=== PATIENT | male | born 1955 | race Caucasian/White ===

== ENCOUNTER 2017-08-08 12:42 | Day surgery (SDC) | payer OTHER ==
[2017-08-08] MEDS ORDERED: LR 1,000 ML IV ONE (13:35)
[2017-08-08] MEDS ORDERED: LIDOCAINE 1% 2 ML INJ ID PRN (13:35)
[2017-08-08] MEDS ORDERED: LIDOCAINE 1% 2 ML INJ ONE (13:42)
[2017-08-08 14:09] VITALS: PULSE 66
[2017-08-08] MEDS ORDERED: MIDAZOLAM 2 MG/2 ML VIAL IVP ONE (15:21)
--- NOTE | 2017-08-08 15:24 | PDANEPAE ---
ANE History of Present Illness R ankle arthrocentesis, bone excision ANE Past Medical History - Cardiovascular History Hx Hypertension: No Hx Arrhythmias: No Hx Chest Pain: No Hx Coronary Artery / Peripheral Vascular Disease: No Hx CHF / Valvular Disease: No Hx Palpitations: No Cardiovascular History Comment: NO CP - Pulmonary History Hx COPD: No Hx Asthma/Reactive Airway Disease: No Hx Recent Upper Respiratory Infection: No Hx Oxygen in Use at Home: No Hx Sleep Apnea: No Sleep Apnea Screening Result - Last Documented: Negative - Neurologic History Hx Cerebrovascular Accident: No Hx Seizures: No Hx Dementia: No - Endocrine History Hx Diabetes: No - Renal History Hx Renal Disorders: No - Liver History Hx Hepatic Disorders: No - Neurological & Psychiatric Hx Hx Neurological and Psychiatric Disorders: Yes Neurological / Psychiatric History Comment: ANXIETY - Cancer History Hx Cancer: Yes Cancer History Comment: basal cell skin cancer - Congenital Disorder History Hx Congenital Disorders: No - GI History Hx Gastrointestinal Disorders: No Gastrointestinal History Comment: none - Other Health History Other Health History: NEG - Chronic Pain History Chronic Pain: No - Surgical History Prior Surgeries: DISPLACE ANKLE ANE Review of Systems Review of Systems: - Exercise capacity Exercise capacity: >=4 METS METS (RN): 4 METS ANE Patient History - Allergies Allergies/Adverse Reactions: No Known Allergies Allergy (Verified 08/02/17 12:07) - Home Medications Home medications: home medication list seen and reviewed Home Medications: Gabapentin 08/02/17 [Last Taken 08/08/17 07:30] - NPO status NPO Since - Liquids (Date): 08/08/17 NPO Since - Liquids (Time): 12:30 NPO Since - Solids (Date): 08/08/17 NPO Since - Solids (Time): 07:00 - Anes Hx Anes Hx: no prior problems - Smoking Hx Smoking Status: Never smoked - Family Anes Hx Family Anes Hx: none Family Hx Anesthesia Complications: NEG ANE Labs/Vital Signs - Vital Signs Blood Pressure: 110/67 Heart Rate: 66 Respiratory Rate: 20 O2 Sat (%): 97 Height: 195.58 cm Weight: 120.202 kg ANE Physical Exam - Airway Neck exam: FROM Mallampati Score: Class 2 Mouth exam: normal dental/mouth exam - Pulmonary Pulmonary: no respiratory distress - Cardiovascular Cardiovascular: regular rate and rhythym - ASA Status ASA Status: II ANE Anesthesia Plan Total IV Anesthesia: Yes
[2017-08-08] MEDS ORDERED: ceFAZolin 2 GM/DEXTROSE 100 ML IV ONE (16:00)
[2017-08-08] MEDS ORDERED: CEFAZOLIN 2 GM/DEXTROSE/100 ML BAG IV ONE (16:01)
--- NOTE | 2017-08-08 16:01 | PDHPUP ---
History & Physical Update H&P update statement: This history and physical update is based on an assessment of the patient which was completed after admission or registration (within 24 hours), but prior to the surgery/procedure. H&P changes: no changes
[2017-08-08] MEDS ORDERED: BUPIVACAINE 0.5% 30 ML SDV ONE (16:13)
[2017-08-08] MEDS ORDERED: PROPOFOL/EMULSION 500 MG/50 ML BOTTLE IV ONE ×2 (16:13→16:43)
[2017-08-08] MEDS ORDERED: LIDOCAINE 2% 100 MG/5 ML SYR ONE (16:14)
[2017-08-08] MEDS ORDERED: DEXAMETHASONE 4 MG/ML VIAL ONE (16:27)
[2017-08-08] MEDS ORDERED: fentaNYL 100 MCG/2 ML INJ IVP PRN (17:17)
[2017-08-08] MEDS ORDERED: ONDANSETRON 4 MG/2 ML VIAL IVP PRN (17:17)
[2017-08-08] MEDS ORDERED: DEXAMETHASONE 4 MG/ML VIAL IVP PRN (17:17)
[2017-08-08] MEDS ORDERED: PROMETHAZINE HCL 25 MG/ML INJ IVP PRN (17:17)
[2017-08-08] MEDS ORDERED: OXYCODONE/APAP 5/325 TAB PO PRN (17:17)
[2017-08-08] MEDS ORDERED: ACETAMINOPHEN 500 MG TAB PO PRN (17:17)
[2017-08-08] MEDS ORDERED: NALOXONE HCL 0.4 MG/ML INJ IVP PRN (17:17)
[2017-08-08] MEDS ORDERED: MEPERIDINE 25 MG/ML SYR IVP PRN (17:17)
[2017-08-08] MEDS ORDERED: HYDROCODONE/APAP 5/325 TAB PO PRN (17:17)
[2017-08-08] MEDS ORDERED: HYDROmorphONE/DILAUDID 1 MG/ML INJ IVP PRN (17:17)
--- NOTE | 2017-08-08 17:18 | POSTANESTH ---
Post Anesthetic Evaluation Cardiovascular Status: Normal, Stable, Similar to Pre-Op Cond Respiratory Status: Normal, Stable, Similar to Pre-op Cond. Level of Consciousness/Mental Status: Can Participate in Eval, Alert and Oriented Pain Control: Adequate, Prn Tx Ordered Nausea/Vomiting Control: Adequate, Prn Tx Ordered Complications Possibly Related to Anesthesia: None Noted
[2017-08-08 18:18] VITALS: BP 106/65; RESP 16; O2SAT 96
[2017-08-08 18:22] VITALS: TEMP 97.3
--- NOTE | 2017-08-09 13:52 | GOP ---
[f rep st] OPERATIVE REPORT DATE OF OPERATION: 08/08/2017 SURGEON: Ezequiel Fritz DPM INSULATION PACKER: None. ANESTHESIA: MAC with local, 10 mL of 0.5% Marcaine plain. PREOPERATIVE DIAGNOSIS: 1. Osteoarthritis with bone spur, right foot. 2. Transient synovitis of right foot. POSTOPERATIVE DIAGNOSIS: 1. Osteoarthritis with bone spur, right foot. 2. Transient synovitis of right foot. PROCEDURE PERFORMED: 1. Excision of partial metatarsal, right foot. 2. Arthrocentesis, right foot. FINDINGS: Consistent with diagnosis. ESTIMATED BLOOD LOSS: Zero. DESCRIPTION OF PROCEDURE: After identification, the patient was brought into the operating room and placed on the operating table in a supine position. Following IV sedation, local anesthesia was obta ined around the patient's right foot, utilizing a total of 10 mL of 0.5% Marcaine plain. The foot wa s then scrubbed, prepped, and draped in the usual aseptic manner. A pneumatic ankle tourniquet was p laced around the right ankle, with ample padding. An Esmarch band was utilized to exsanguinate the patient's right foot, and the pneumatic ankle tourni quet was then inflated. Attention was then directed to the dorsolateral aspect of the patient's righ t foot, where a 3 cm linear longitudinal incision was made over the proximal 4th intermetatarsal spac e. This incision was continued through the subcutaneous tissue, care being taken to identify and ret ract all vital neurovascular structures. All bleeders were ligated and cauterized as necessary. Inc ision was deepened down to the level of the 4th intermetatarsal space, where an exostosis is present between the 4th and 5th metatarsals. There is significant synovitis in this area. Using a bur, all redundant bone was removed from this intermetatarsal space and passed from the operative field. Upon completion of this procedure, the incision set was flushed with copious amounts of normal sterile sa line solution. Deep structures were reapproximated using 3-0 Vicryl, subcutaneous tissue reapproxima peter using 3-0 Vicryl, skin reapproximated utilizing 5-0 Vicryl in a running subcuticular suture techn ique. Then 4 mg of dexamethasone was injected into this joint. The incision was then dressed with Steri-Strips, Adaptic, 4 x 4 gauze, Fam, Shukri bandage. The patie nt tolerated the procedure and anesthesia well. The patient is transported to the postoperative naveed very area with vital signs stable and vascular status intact to the right foot. HEMOSTASIS: Right pneumatic ankle tourniquet, inflated to 250 mmHg, for 15 minutes. MATERIALS: None. INJECTABLES: 4 mg of dexamethasone. CONDITION: Stable. /[id number]/MODL
== END 2017-08-08 18:37 | disposition home or self-care (01) ==
LOC: FSGY 12:42
PROVIDERS: ATTEND Podiatrist
PROC: 0QBN0ZZ Excision of Right Metatarsal, Open Approach (ICD-10-PCS; principal; 2017-08-08 15:30)
DX: M67.371 Transient synovitis, right ankle and foot (principal); M19.071 Primary osteoarthritis, right ankle and foot
CPT/HCPCS: J0690; J1100; J2001; J2250; J2704